=== PATIENT | male | born 1955 | race Caucasian/White ===

== ENCOUNTER 2017-01-05 11:28 | Emergency (ER) | payer SELFPAY ==
[2017-01-05] MEDS ORDERED: NORMAL SALINE 1000 ML 1,000 ML IV ONE (12:24)
[2017-01-05] MEDS ORDERED: KETOROLAC TROMETHAMINE INJ/PF 30 MG/1 ML SDV IV ONE (12:25)
--- NOTE | 2017-01-05 12:27 | ER Document Report ---
ED Medical Screen (RME) - General Chief Complaint: Abdominal Pain Stated Complaint: LOWER ABDOMINAL PAIN Time Seen by Provider: 01/05/17 12:24 Mode of Arrival: Ambulatory Information source: Patient - pt with h/o umbilical hernia with onset of generalized abdominal pain starting earlier this am. TRAVEL OUTSIDE OF THE [place] IN LAST 30 DAYS: No - Related Data Allergies/Adverse Reactions: No Known Allergies Allergy (Unverified 01/05/17 11:54) Past Medical History Renal/ Medical History: Denies: Hx Peritoneal Dialysis Physical Exam - Vital signs Vitals: Temp Pulse Resp BP Pulse Ox 98.5 F 98 24 H 139/76 H 99 01/05/17 11:54 01/05/17 11:54 01/05/17 11:54 01/05/17 11:54 01/05/17 11:54 Course - Vital Signs Vital signs: Temp Pulse Resp BP Pulse Ox 98.5 F 98 24 H 139/76 H 99 01/05/17 11:54 01/05/17 11:54 01/05/17 11:54 01/05/17 11:54 01/05/17 11:54
[2017-01-05 12:59] LABS: APPEARANCE,URINE CLEAR; BILIRUBIN,URINE NEGATIVE (NEGATIVE); GLUCOSE, URINE NEGATIVE (NEGATIVE); KETONES,URINE 20 mg/dL (NEGATIVE); LEUKOCYTE ESTERASE,URINE NEGATIVE (NEGATIVE); NITRITE,URINE NEGATIVE (NEGATIVE); PROTEIN,URINE NEGATIVE (NEGATIVE); URINE SPECIFIC GRAVITY 1.011; UROBILINOGEN,URINE NEGATIVE mg/dL (<2.0)
[2017-01-05 13:30] LABS: ABSOLUTE BASOPHILS # (AUTO) 0.1 10^3/uL (0.0-0.2); ABSOLUTE LYMPHOCYTES (AUTO) 0.8 10^3/uL (0.5-4.7); ABSOLUTE MONOCYTES (AUTO) 0.5 10^3/uL (0.1-1.4); ABSOLUTE NEUT (AUTO) 2.7 10^3/uL (1.7-8.2); BASOPHILS % (AUTO) 1.3 % (0-2); EOSINOPHILS % (AUTO) 0.4 % (0-6); HEMATOCRIT 39.8 % (37.9-51.0); HGB HCT DIFFERENCE -0.8; LYMPHOCYTES % (AUTO) 19.9 % (13-45); MEAN CORPUSCULAR HEMOGLOBIN 31.2 pg (27.0-33.4); MEAN CORPUSCULAR HGB CONC 32.6 g/dL (32.0-36.0); MEAN CORPUSCULAR VOLUME 96 fl (80-97); MONOCYTES % (AUTO) 13.2 % (3-13); RED BLOOD COUNT 4.16 10^6/uL (4.35-5.55); RED CELL DISTRIBUTION WIDTH 18.7 % (11.5-14.0); SEGMENTED NEUTROPHILS % (AUTO) 65.2 % (42-78); WHITE BLOOD COUNT 4.1 10^3/uL (4.0-10.5)
[2017-01-05 13:39] LABS: ALANINE AMINOTRANSFERASE 87 U/L (21-72); ALBUMIN 4.2 g/dL (3.5-5.0); ALKALINE PHOSPHATASE 132 U/L (38-126); ANION GAP 16 (5-19); ASPARTATE AMINO TRANSFERASE 328 U/L (17-59); BILIRUBIN,DIRECT 0.7 mg/dL (0.0-0.4); BILIRUBIN,TOTAL 2.3 mg/dL (0.2-1.3); BLOOD UREA NITROGEN 6 mg/dL (7-20); CALCIUM 9.3 mg/dL (8.4-10.2); CARBON DIOXIDE 23 mmol/L (22-30); CHLORIDE 103 mmol/L (98-107); CREATININE RESULT 0.59 mg/dL (0.52-1.25); GLUCOSE 99 mg/dL (75-110); LIPASE 292.2 U/L (23-300); POTASSIUM 4.7 mmol/L (3.6-5.0); SODIUM 141.6 mmol/L (137-145); TOTAL PROTEIN 7.3 g/dL (6.3-8.2)
--- NOTE | 2017-01-05 16:01 | ER Document Report ---
ED GI/ - General Chief Complaint: Abdominal Pain Stated Complaint: LOWER ABDOMINAL PAIN Time Seen by Provider: 01/05/17 12:24 Mode of Arrival: Ambulatory Information source: Patient Notes: Patient presents complaining of abdominal pain with nausea that started today while he was in the shower. Patient states that at the time his umbilical hernia seem to be larger than it normally looks. Patient states that his hernia has since gone back down in size. Patient denies any vomiting or diarrhea. Last bowel movement was today and was normal. Patient denies any fever or urinary symptoms. TRAVEL OUTSIDE OF THE [place] IN LAST 30 DAYS: No - HPI Patient complains to provider of: Abdominal pain. No: Vomiting Onset: This afternoon Timing/Duration: Better Quality of pain: Sharp Pain Level: 2 Location: Other - umbilical Associated symptoms: Nausea. denies: Chest pain, Diarrhea, Dysuria, Fever, Loss of appetite, Vomiting Exacerbated by: Denies Relieved by: Denies Similar symptoms previously: No Recently seen / treated by doctor: No - Related Data Allergies/Adverse Reactions: No Known Allergies Allergy (Unverified 01/05/17 11:54) Home Medications: Current Home Medications No Home Medications 01/05/17 [History] Past Medical History - General Information source: Patient - pt with h/o umbilical hernia with onset of generalized abdominal pain starting earlier this am. - Social History Smoking Status: Never Smoker Frequency of alcohol use: Heavy - 4 beers a day Drug Abuse: None Occupation: [employer] Lives with: Family Family History: Reviewed & Not Pertinent Patient has suicidal ideation: No Patient has homicidal ideation: No - Medical History Medical History: Negative Renal/ Medical History: Denies: Hx Peritoneal Dialysis Surgical Hx: Negative Review of Systems - Review of Systems Constitutional: No symptoms reported. denies: Fever, Recent illness EENT: No symptoms reported Cardiovascular: No symptoms reported. denies: Chest pain Respiratory: No symptoms reported. denies: Cough, Short of breath Gastrointestinal: Abdominal pain, Nausea. denies: Vomiting Genitourinary: No symptoms reported. denies: Dysuria, Flank pain Male Genitourinary: No symptoms reported Musculoskeletal: No symptoms reported. denies: Back pain Skin: No symptoms reported Hematologic/Lymphatic: No symptoms reported Neurological/Psychological: No symptoms reported Physical Exam - Vital signs Vitals: Temp Pulse Resp BP Pulse Ox 98.5 F 98 24 H 139/76 H 99 05/20/17 11:54 01/05/17 11:54 01/05/17 11:54 01/05/17 11:54 01/05/17 11:54 - General General appearance: Appears well, Alert In distress: None - HEENT Head: Normocephalic, Atraumatic Eyes: Normal Conjunctiva: Normal Nasal: Normal Mouth/Lips: Normal Mucous membranes: Normal Pharynx: Normal. No: Exudate, Peritonsillar abscess Neck: Normal, Supple. No: Lymphadenopathy - Respiratory Respiratory status: No respiratory distress Chest status: Nontender Breath sounds: Normal Chest palpation: Normal - Cardiovascular Rhythm: Regular Heart sounds: S1 appreciated, S2 appreciated Murmur: No - Abdominal Inspection: Normal Distension: No distension Bowel sounds: Normal Tenderness: Tender - Umbilical, LMQ tenderness Organomegaly: No organomegaly - Back Back: Normal, Nontender. No: CVA tenderness - Extremities General upper extremity: Normal inspection, Normal strength General lower extremity: Normal inspection, Normal strength - Neurological Neuro grossly intact: Yes Cognition: Normal Miranda Coma Scale Eye Opening: Spontaneous Miranda Coma Scale Verbal: Oriented Miranda Coma Scale Motor: Obeys Commands Alexis Coma Scale Total: 15 - Psychological Associated symptoms: Normal affect, Normal mood - Skin Skin Temperature: Warm Skin Moisture: Dry Skin Color: Normal Course - Re-evaluation Re-evalutation: 01/05/17 15:[address] Greer regarding patient presentation and diagnostic test results. Advises outpatient follow-up with the general surgeon for management of his cholelithiasis as well as umbilical hernia. No additional testing advised at this time. Discussed plan of care with patient, patient encouraged to follow-up with primary care provider to reevaluate his laboratory tests. Patient advised of his low platelet level and need to stop drinking alcohol. Patient advised to return immediately for any abnormal bleeding or bruising, increased abdominal pain, fever, or any concerning symptoms. Patient verbalized understanding and agrees with plan of care. Patient presents with abdominal pain without signs of peritonitis or other life- threatening or serious etiology. Patient appears stable for discharge and has been instructed to return immediately if the symptoms worsen in any way, or in 8 -12 hours if not improved for reevaluation. The patient has been instructed to return if the symptoms worsen or change in any way. - Vital Signs Vital signs: Temp Pulse Resp BP Pulse Ox 98.6 F 105 H 18 160/79 H 94 01/05/17 16:15 01/05/17 16:15 01/05/17 16:15 01/05/17 16:15 01/05/17 16:15 - Laboratory Result Diagrams: 01/05/17 13:00 01/05/17 13:00 Laboratory results interpreted by me: 01/05/17 01/05/17 01/05/17 12:32 13:00 13:00 RBC 4.16 L Hgb 13.0 L RDW 18.7 H Plt Count 55 L Monocytes % 13.2 H BUN 6 L Total Bilirubin 2.3 H Direct Bilirubin 0.7 H AST 328 H ALT 87 H Alkaline Phosphatase 132 H Urine Ketones 20 H 01/05/17 15:57 Labs- Entire Visit 01/05/17 01/05/17 01/05/17 12:32 13:00 13:00 WBC 4.1 RBC 4.16 L Hgb 13.0 L Hct 39.8 MCV 96 MCH 31.2 MCHC 32.6 RDW 18.7 H Plt Count 55 L Seg Neutrophils % 65.2 Lymphocytes % 19.9 Monocytes % 13.2 H Eosinophils % 0.4 Basophils % 1.3 Absolute Neutrophils 2.7 Absolute Lymphocytes 0.8 Absolute Monocytes 0.5 Absolute Eosinophils 0.0 Absolute Basophils 0.1 Sodium 141.6 Potassium 4.7 Chloride 103 Carbon Dioxide 23 Anion Gap 16 BUN 6 L Creatinine 0.59 Est GFR ( Amer) > 60 Est GFR (Non-Af Amer) > 60 Glucose 99 Calcium 9.3 Total Bilirubin 2.3 H Direct Bilirubin 0.7 H Indirect Bilirubin Not Reportable Neonat Total Bilirubin Not Reportable AST 328 H ALT 87 H Alkaline Phosphatase 132 H Total Protein 7.3 Albumin 4.2 Lipase 292.2 Urine Color YELLOW Urine Appearance CLEAR Urine pH 9.0 Ur Specific [place] 1.011 Urine Protein NEGATIVE Urine Glucose (UA) NEGATIVE Urine Ketones 20 H Urine Blood NEGATIVE Urine Nitrite NEGATIVE Urine Bilirubin NEGATIVE Urine Urobilinogen NEGATIVE Ur Leukocyte Esterase NEGATIVE Urine WBC (Auto) 1 Urine RBC (Auto) 0 Urine Bacteria (Auto) TRACE Urine Mucus (Auto) RARE Urine Ascorbic Acid NEGATIVE 01/05/17 15:58 01/05/17 18:22 - Diagnostic Test Radiology reviewed: Reports reviewed Discharge - Discharge Clinical Impression: Thrombocytopenia, Abnormal liver function test Umbilical hernia Qualifiers: Obstruction and gangrene presence: without obstruction or gangrene Qualified Code(s): K42.9 - Umbilical hernia without obstruction or gangrene Cholelithiasis Qualifiers: Cholelithiasis location: gallbladder Cholecystitis presence: without cholecystitis Biliary obstruction: without biliary obstruction Qualified Code(s) : K80.20 - Calculus of gallbladder without cholecystitis without obstruction Abdominal pain Qualifiers: Abdominal location: periumbilical Qualified Code(s): R10.33 - Periumbilical pain Disposition: HOME, SELF-CARE Instructions: Abdominal Pain ([facility]), Gallbladder Disease ([facility]), Low-Fat Diet ( [facility]), Oral Narcotic Medication ([facility]), Toradol Injection ([facility]), Umbilical Hernia ([facility]), Liver Function Abnormality ([facility]), Thrombocytopenia ([facility]), Family Physicians / Practices Additional Instructions: Return immediately for any new or worsening symptoms Followup with your primary care provider, call tomorrow to make a followup appointment Primary doctor can reevaluate your liver function tests, your platelet test, as well as recheck your blood pressure as it was slightly elevated today. He will also need to follow-up with a general surgeon for further management of your gallstones as well as your umbilical hernia. Forms: Elevated Blood Pressure, Return to Work Referrals: [facility] [Provider Group] - Follow up in 3-5 days [facility] [Provider Group] - 01/07/17
[2017-01-05 16:19] VITALS: BP 160/79
== END 2017-01-05 16:18 | disposition home or self-care (01) ==
LOC: ER 11:28
DX: K42.9 Umbilical hernia without obstruction or gangrene (principal); K80.20 Calculus of gallbladder without cholecystitis without obstruction; D69.6 Thrombocytopenia, unspecified; R79.89 Other specified abnormal findings of blood chemistry; R11.0 Nausea
CPT/HCPCS: 99284; 96361; 96374; 36415; 83690; 85025; 80053; 81001; 74177; J1885; J7030

== ENCOUNTER 2017-02-17 16:55 | Emergency (ER) | payer SELFPAY ==
[2017-02-17] MEDS ORDERED: HYDROMORPHONE HCL INJ/PF 2 MG/ML AMPULE IV ONE (17:10)
[2017-02-17] MEDS ORDERED: HYDROMORPHONE HCL INJ/PF 2 MG/ML AMPULE ONE (17:10)
--- NOTE | 2017-02-17 17:13 | ER Document Report ---
ED GI/ - General Mode of Arrival: Ambulatory Information source: Patient TRAVEL OUTSIDE OF THE [place] IN LAST 30 DAYS: No - HPI Patient complains to provider of: Abdominal pain, Vomiting Timing/Duration: Sudden Quality of pain: Achy, Pressure, Sharp, Stabbing Severity at maximum: Severe Severity in ED: Severe Pain Level: 5 Location: Other - diffuse Associated symptoms: Nausea, Vomiting <CHICA ARRINGTON - Last Filed: 02/17/17 19:28> <CAR STERN - Last Filed: 02/18/17 00:34> - General Chief Complaint: Abdominal Pain Stated Complaint: ABDOMINAL PAIN Time Seen by Provider: 02/17/17 17:09 - HPI Notes: 02/17/17 17:59 Is a 61-year-old male who presents to the emergency room complaining of acute onset abdominal pain, he was seen here a little over a month ago and diagnosed with gallstones and an umbilical hernia that was reducible at the time, today while shopping at the [employer] store with some friends he felt a pop in his abdomen and has had intense pain since, he also had some vomiting today, he is a heavy drinker, having at least 2 beers today and drinking more heavily yesterday denies any previous surgeries on the abdomen (CHICA ARRINGTON) - Related Data Allergies/Adverse Reactions: No Known Allergies Allergy (Verified 02/17/17 16:59) Past Medical History - General Information source: Patient - Social History Smoking Status: Unknown if Ever Smoked Frequency of alcohol use: Heavy Family History: Reviewed & Not Pertinent Patient has suicidal ideation: No Patient has homicidal ideation: No Renal/ Medical History: Denies: Hx Peritoneal Dialysis <CHICA ARRINGTON - Last Filed: 02/17/17 19:28> Review of Systems - Review of Systems Constitutional: No symptoms reported EENT: No symptoms reported Cardiovascular: No symptoms reported Respiratory: No symptoms reported Gastrointestinal: See HPI Genitourinary: No symptoms reported Male Genitourinary: No symptoms reported Musculoskeletal: No symptoms reported Skin: No symptoms reported Hematologic/Lymphatic: No symptoms reported Neurological/Psychological: No symptoms reported -: Yes All other systems reviewed and negative <CHICA ARRINGTON - Last Filed: 02/17/17 19:28> Physical Exam - Vital signs Interpretation: Tachycardic, Tachypneic - General General appearance: Alert In distress: Moderate - HEENT Head: Normocephalic, Atraumatic Eyes: Normal Conjunctiva: Normal Extraocular movements intact: Yes Eyelashes: Normal Pupils: PERRL Mucous membranes: Other - EtOH on breath - Respiratory Respiratory status: No respiratory distress Chest status: Nontender Breath sounds: Normal Chest palpation: Normal - Cardiovascular Rhythm: Regular, Tachycardia Heart sounds: Normal auscultation Murmur: No - Abdominal Distension: Distended Bowel sounds: Normal Tenderness: Tender - Diffuse tenderness, mainly in the periumbilical area, with a firm tender umbilical hernia, that appears incarcerated, tenderness in the right upper quadrant and left lower quadrant as well patient is writhing in pain Organomegaly: No organomegaly - Back Back: Normal, Nontender - Extremities General upper extremity: Normal inspection, Nontender, Normal color, Normal ROM , Normal temperature General lower extremity: Normal inspection, Nontender, Normal color, Normal ROM , Normal temperature, Normal weight bearing. No: River's sign - Neurological Neuro grossly intact: Yes Cognition: Normal Orientation: AAOx4 [place] Coma Scale Eye Opening: Spontaneous Miranda Coma Scale Verbal: Oriented [place] Coma Scale Motor: Obeys Commands Miranda Coma Scale Total: 15 Speech: Normal Motor strength normal: LUE, RUE, LLE, RLE Sensory: Normal - Psychological Associated symptoms: Normal affect, Normal mood - Skin Skin Temperature: Warm Skin Moisture: Dry Skin Color: Normal <CHICA ARRINGTON - Last Filed: 02/17/17 19:28> Course - Laboratory Result Diagrams: 02/17/17 17:00 02/17/17 17:00 - Diagnostic Test Radiology reviewed: Image reviewed, Reports reviewed - EKG Interpretation by [facility] EKG shows normal: Sinus rhythm Rate: Tachycardia - Consults Dr Jorge Time consulted: 17:36 Consulted provider: will come to ER - Transfer of Care Care transferred to following provider: Dr Jorge <CHICA ARRINGTON - Last Filed: 02/17/17 19:28> - Laboratory Result Diagrams: 02/17/17 17:00 02/17/17 17:00 <CAR STERN - Last Filed: 02/18/17 00:34> - Re-evaluation Re-evalutation: 02/17/17 18:19 Seen and evaluated by surgeon, Dr. Jorge, who recommended he be transferred to tertiary care center due to high morbidity and mortality related to postop complications from possible alcohol withdrawal, Dr. Jorge was able to reduce the umbilical hernia and placed a gauze pressure dressing over the area to attempt to prevent it from recurring A call was placed to [facility], spoke with transfer center, requested call back from surgeon regarding patient 02/17/17 18:28 Patient was discussed with Dr. Garrido, surgeon at [facility], he was then transferred to Dr. Jorge, so that they could talk about patient surgeon to surgeon to make further recommendations Patient was discussed with the hospitalist, Dr. Sierra who graciously accepted patient for transfer, Zeynep at the transfer center anticipate patient will receive a bed assignment sometime this evening Plan was discussed with patient and several family members at bedside who are in agreement (CHICA ARRINGTON) 02/18/17 00:32 Patient with stable vital signs and was alert and appropriate prior to transfer to additional normal saline bolus 1 L was given. [facility]. On repeat abdominal exam, the patient had no evidence for incarcerated hernia, and the area remained reduced. Patient was slightly tremulous, so patient was given Ativan 2 mg IV. I discussed with the nuclear officer transport crew about dosing for pain medication in route if needed. Patient is stable for transfer at this time. 02/18/17 00:34 (CAR STERN) - Vital Signs Vital signs: Temp Pulse Resp BP Pulse Ox 98.3 F 114 H 13 118/104 H 99 02/17/17 19:44 02/17/17 19:44 02/18/17 00:19 02/18/17 00:19 02/18/17 00:19 - Laboratory Laboratory results interpreted by me: 02/17/17 02/17/17 17:00 17:00 RBC 4.27 L Hgb 13.1 L RDW 20.6 H Plt Count 65 L Monocytes % 14.6 H BUN 6 L Total Bilirubin 1.9 H Direct Bilirubin 1.0 H AST 198 H Alkaline Phosphatase 135 H Lipase 383.4 H Serum Alcohol 323 H* - Consults Dr Jorge Reason for consultation: 02/17/17 17:36 incarcerated umbilical hernia, abdominal pain (CHICA ARRINGTON) Discharge - Discharge Admitting Provider: Surgicalist Unit Admitted: Surgical Floor <CHICA ARRINGTON - Last Filed: 02/17/17 19:28> <CAR STERN - Last Filed: 02/18/17 00:34> - Discharge Clinical Impression: Incarcerated umbilical hernia Cholelithiasis Qualifiers: Cholelithiasis location: gallbladder Cholecystitis presence: with cholecystitis Cholecystitis acuity: chronic Biliary obstruction: without biliary obstruction Qualified Code(s): K80.10 - Calculus of gallbladder with chronic cholecystitis without obstruction Acute alcohol intoxication Qualifiers: Complication of substance-induced condition: with unspecified complication Qualified Code(s): F10.929 - Alcohol use, unspecified with intoxication, unspecified Condition: Serious Disposition: [facility]
[2017-02-17 17:34] LABS: ABSOLUTE BASOPHILS # (AUTO) 0.1 10^3/uL (0.0-0.2); ABSOLUTE EOSINOPHILS # (AUTO) 0.1 10^3/uL (0.0-0.6); ABSOLUTE LYMPHOCYTES (AUTO) 2.1 10^3/uL (0.5-4.7); ABSOLUTE NEUT (AUTO) 3.7 10^3/uL (1.7-8.2); BASOPHILS % (AUTO) 1.3 % (0-2); EOSINOPHILS % (AUTO) 0.8 % (0-6); HEMATOCRIT 40.8 % (37.9-51.0); HEMOGLOBIN 13.1 g/dL (13.5-17.0); HGB HCT DIFFERENCE -1.5; LYMPHOCYTES % (AUTO) 29.7 % (13-45); MEAN CORPUSCULAR HEMOGLOBIN 30.6 pg (27.0-33.4); MEAN CORPUSCULAR HGB CONC 32.1 g/dL (32.0-36.0); MEAN CORPUSCULAR VOLUME 96 fl (80-97); MONOCYTES % (AUTO) 14.6 % (3-13); RED BLOOD COUNT 4.27 10^6/uL (4.35-5.55); RED CELL DISTRIBUTION WIDTH 20.6 % (11.5-14.0); SEGMENTED NEUTROPHILS % (AUTO) 53.6 % (42-78); WHITE BLOOD COUNT 6.9 10^3/uL (4.0-10.5)
[2017-02-17 17:46] LABS: ALANINE AMINOTRANSFERASE 71 U/L (21-72); ALBUMIN 3.7 g/dL (3.5-5.0); ALKALINE PHOSPHATASE 135 U/L (38-126); ANION GAP 16 (5-19); ASPARTATE AMINO TRANSFERASE 198 U/L (17-59); BILIRUBIN,TOTAL 1.9 mg/dL (0.2-1.3); BLOOD UREA NITROGEN 6 mg/dL (7-20); CALCIUM 8.6 mg/dL (8.4-10.2); CARBON DIOXIDE 23 mmol/L (22-30); CHLORIDE 102 mmol/L (98-107); CREATININE RESULT 0.67 mg/dL (0.52-1.25); GLUCOSE 100 mg/dL (75-110); LIPASE 383.4 U/L (23-300); POTASSIUM 4.4 mmol/L (3.6-5.0); SODIUM 140.6 mmol/L (137-145); TOTAL PROTEIN 6.9 g/dL (6.3-8.2)
[2017-02-17] MEDS: NORMAL SALINE 1000 ML 1,000 ML IV PRN ×2 (17:48→20:53)
[2017-02-17 18:00] LABS: ALCOHOL 323 mg/dL (NONE DETECTED)
--- NOTE | 2017-02-17 18:00 | RADIOLOGY REPORT (SQ) ---
EXAM DESCRIPTION: CT ABD/PELVIS WITH IV ONLY COMPLETED DATE/TIME: 02/17/2017 5:31 pm REASON FOR STUDY: flank pain COMPARISON: 01/05/2017. TECHNIQUE: CT scan of the abdomen and pelvis performed using helical scanning technique with dynamic intravenous contrast injection. No oral contrast. Images reviewed with lung, soft tissue, and bone windows. Reconstructed coronal and sagittal MPR images reviewed. Delayed images for evaluation of the urinary system also acquired. All images stored on PACS. All CT scanners at this facility use dose modulation, iterative reconstruction, and/or weight based d osing when appropriate to reduce radiation dose to as low as reasonably achievable (ALARA). [facility]: Dose Right [facility]: CareDose [facility]: Dose Right [facility]: Teradose 4D [facility]: [employer] CONTRAST TYPE AND DOSE: contrast/concentration: Isovue 370.00 mg/ml; Total Contrast Delivered: 84.0 ml; Total Saline Delivered: 69.0 ml RENAL FUNCTION: Not available. RADIATION DOSE: Up-to-date CT equipment and radiation dose reduction techniques were employed. CTDIv ol: 8.4 - 12.2 mGy. DLP: 1152 mGy-cm.. LIMITATIONS: None. FINDINGS: LOWER CHEST: No significant findings. No nodules or infiltrates. LIVER: Fatty liver without worrisome focal lesion. Prominent vascularity in the gastrohepatic ligame nt and along the lower mediastinum, likely varices. SPLEEN: Normal size. No focal lesions. PANCREAS: No masses. No significant calcifications. No adjacent inflammation or peripancreatic fluid collections. Pancreatic duct not dilated. GALLBLADDER: Distended. Probable cholelithiasis. Probable wall thickening with regional mild perich olecystic fluid suggested. No duct dilatation. ADRENAL GLANDS: No significant masses or asymmetry. RIGHT KIDNEY AND URETER: No solid masses. No significant calcification. No hydronephrosis or hydroure ter. LEFT KIDNEY AND URETER: No solid masses. No significant calcification. No hydronephrosis or hydrouret er. AORTA AND VESSELS: No aneurysm. No dissection. Renal arteries, SMA, celiac without stenosis. RETROPERITONEUM: No retroperitoneal adenopathy, hemorrhage or masses. BOWEL AND PERITONEAL CAVITY: Fluid-filled loops of left lower quadrant bowel. These appear to track to the umbilicus, where there is a small umbilical hernia containing a knuckle of small bowel. No fr ee air or free fluid otherwise identified. APPENDIX: Normal. PELVIS: No mass or free fluid. Normal bladder. ABDOMINAL WALL: Umbilical hernia as above. BONES: No significant or acute findings. OTHER: No other significant finding. IMPRESSION: 1. Small umbilical hernia, likely with partial small bowel obstruction. Proximal to the hernia, there is distention of fluid-filled small bowel in the left lower quadrant. 2. Liver disea se. Probable portal hypertension. Fatty liver with mild perihepatic fluid. 3. Distended gallbladde r with cholelithiasis. Trace pericholecystic fluid may be related to the underlying liver disease. Patient's symptoms are presumably related to the obstructing umbilical hernia, however gallbladder ul trasound can be performed if there is suspicion for contributing gallbladder disease. TECHNICAL DOCUMENTATION: JOB ID: [id number] Quality ID # [id number]: Final reports with documentation of one or more dose reduction techniques (e.g., Au tomated exposure control, adjustment of the mA and/or kV according to patient size, use of iterative reconstruction technique) 2010 [employer]- All Rights Reserved
[2017-02-17] MEDS ORDERED: FENTANYL CITRATE INJ/PF 100 MCG/2 ML AMPUL IV ONE (18:40)
[2017-02-17] MEDS ORDERED: ERTAPENEM SODIUM INJ 1 GM VIAL IV ONE (19:15)
[2017-02-17 19:47] LABS: MAGNESIUM 1.8 mg/dL (1.6-2.3)
--- NOTE | 2017-02-17 20:12 | RADIOLOGY REPORT (SQ) ---
EXAM DESCRIPTION: U/S ABDOMEN LIMITED W/O DOP COMPLETED DATE/TIME: 02/17/2017 8:03 pm REASON FOR STUDY: pain COMPARISON: CT from earlier. TECHNIQUE: Dynamic and static grayscale images acquired of the abdomen and recorded on PACS. Additio nal selected color Doppler and spectral images recorded. LIMITATIONS: None. FINDINGS: PANCREAS: Limited visualization. No gross mass. LIVER: Diffusely echogenic, fatty infiltration. LIVER VASCULATURE: Normal directional flow of the main portal vein and hepatic veins. GALLBLADDER: Stones. Wall looks normal thickness. Pericholecystic fluid is present. ULTRASOUND-DETECTED LIND'S SIGN: Positive per technologist. INTRAHEPATIC DUCTS AND COMMON DUCT: CBD and intrahepatic ducts normal caliber. No filling defects. INFERIOR VENA CAVA: Normal flow. AORTA: No aneurysm. RIGHT KIDNEY: Normal size. Normal echogenicity. No solid or suspicious masses. No hydronephrosis. No calcifications. PERITONEAL AND RIGHT PLEURAL SPACE: No ascites or effusions. OTHER: No other significant findings. IMPRESSION: 1. Suspicious for acute gallbladder disease, as above. Please also correlate with CT fo r additional findings. TECHNICAL DOCUMENTATION: JOB ID: [id number] [employer]- All Rights Reserved
--- NOTE | 2017-02-17 21:40 | EKG REPORT ---
SEVERITY:- BORDERLINE ECG - SINUS TACHYCARDIA PROBABLE LEFT ATRIAL ABNORMALITY BORDERLINE LEFT AXIS DEVIATION : Confirmed by: Vitor Monk 17-Feb-2017 21:40:17
--- NOTE | 2017-02-17 22:04 | CONSULTATION REPORT E ---
Consultation Report NAME: EDITA MARTINEZ : 1955 AGE: 61Y DATE: 02/17/2017 ED15 A TO: PAM ENCISO M.D. FROM: Catrachita MUKHERJEE, Requesting Physician REASON FOR CONSULTATION: Patient with abdominal pain and incarcerated umbilical hernia. HISTORY OF PRESENT ILLNESS: This is a 61-year-old male, who is known to drink heavily according to his two brothers, when today while shopping at the [employer] store complained of feeling a pop in his abdomen and since then has had intense pains with vomiting. Yesterday he drank about a fifth of rum and today at least 2 beers. No previous abdominal operations in the past and denies any other previous operations anywhere in his body. However, the patient is somewhat flushed and writhing in pain. ALLERGIES: None known. SOCIAL HISTORY: Denies smoking. Drinks heavily, according to his brothers has been drinking every day. Denies drug use. REVIEW OF SYSTEMS: The patient denies any discomfort other than generalized abdominal pains from around the umbilicus area and in the upper abdomen. Also associated nausea and vomiting. Denies any dysuria, chest pain, shortness of breath. The patient appears flushed and intoxicated. The rest of the systems were reviewed and negative. PHYSICAL EXAMINATION: GENERAL: Well-developed, well-nourished, 61-year-old male, quite alert and oriented but constantly writhing in pain. VITAL SIGNS: Temperature is 98.3. Pulse of 104 per minute. Respiratory rate of 24. BP 133/87 and pulse oximetry of 94 on room air. HEENT: The patient's face is flushed. NECK: Supple. LUNGS: Clear. HEART: Tachycardic. ABDOMEN: With voluntary guarding and marked tenderness of the umbilicus. He had an umbilical hernia that I was able to reduce and applied some pressure dressing to hopefully prevent it from coming back. He is also tender in both upper quadrants. EXTREMITIES: No edema. DIAGNOSTIC DATA: His blood alcohol level is elevated around 363, and his white count is normal at 6.9 with a hemoglobin 13.1. His LFTs are slightly elevated with AST 198 and ALT 71, alkaline phosphatase of 135, lipase is 383. These numbers are actually lower than when he was seen here in the emergency room over a month ago when he was noted to have a reducible umbilical hernia and the gallstones. He had a CAT scan of the abdomen which showed a partial bowel obstruction probably due to incarcerated umbilical hernia and gallstones with acute cholecystitis. In view of the fact that patient drinks every day and the umbilical hernia has been reduced, the main concern here is his alcohol intoxication with possible eventual withdrawal symptoms. I spoke to the surgeon at [facility] who claimed that since they are not going to do any emergency gallbladder surgery and the fact that the umbilical hernia has been reduced, that the patient probably should be admitted to the medical service. *------* talked to the hospitalist at [facility], who accepted the patient. IMPRESSION: 1. Umbilical hernia, incarcerated that I just reduced. 2. Acute calculous cholecystitis. 3. Alcohol intoxication with possible starting cirrhosis of the liver. DICTATING PHYSICIAN: PAM ENCISO M.D. [id number] PHY#: [id number] 2019 ID: [id number] JOB#: [id number] ACCT: [id number] cc:PAM ENCISO M.D. >
[2017-02-17 22:47] LABS: APPEARANCE,URINE CLEAR; BILIRUBIN,URINE NEGATIVE (NEGATIVE); GLUCOSE, URINE NEGATIVE (NEGATIVE); KETONES,URINE NEGATIVE (NEGATIVE); LEUKOCYTE ESTERASE,URINE NEGATIVE (NEGATIVE); NITRITE,URINE NEGATIVE (NEGATIVE); PROTEIN,URINE NEGATIVE (NEGATIVE); URINE SPECIFIC GRAVITY 1.039
[2017-02-18 00:11] VITALS: BP 118/104
[2017-02-18] MEDS ORDERED: NORMAL SALINE 1000 ML 1,000 ML IV ONE (00:25)
[2017-02-18] MEDS ORDERED: LORAZEPAM INJ 2 MG/1 ML VIAL IV ONE (00:32)
[2017-02-18] MEDS ORDERED: LORAZEPAM INJ 2 MG/1 ML VIAL ONE (00:35)
== END 2017-02-18 00:40 | disposition short-term general hospital (02) ==
LOC: ER 16:55 → UNDOADMIN 18:10 → EH 18:10
DX: K42.0 Umbilical hernia with obstruction, without gangrene (principal); K80.10 Calculus of gallbladder with chronic cholecystitis without obstruction; F10.929 Alcohol use, unspecified with intoxication, unspecified; R10.84 Generalized abdominal pain; R11.2 Nausea with vomiting, unspecified; R00.0 Tachycardia, unspecified; R06.82 Tachypnea, not elsewhere classified; R25.1 Tremor, unspecified
CPT/HCPCS: 93005; 99285; 96361; 96375; 96365; 36415; 87040; 87086; 80307; 82150; 83690; 83735; 85025; 80053; 81001; 76705; 74177; 93010; J3010; J1335; J1170; J2060; J7030 ×2